=== PATIENT | female | born 1975 | race Two or more races ===

== ENCOUNTER → 2024-08-20 | Outpatient (CLI) | payer MEDICAID, SELFPAY ==
--- NOTE | 2024-08-20 15:00 | XR_ITS ---
Examination: Pelvic ultrasound, transabdominal, complete Technique: Transabdominal ultrasound of the pelvis performed using grayscale imaging Date and time of exam: August 20, 2024 1503 hours INDICATIONS: Lower pelvic pain beginning 2 months ago FINDINGS: Uterus 9.6 x 4.0 x 5.5 cm No uterine mass noted on this transabdominal study Endometrial stripe 0.8 cm Right ovary 2.2 cm arterial flow Left ovary 3.7 cm arterial flow, 3.7 x 3.0 cm cyst IMPRESSION: Left ovarian cyst 3.7 x 2.6 x 3.0 cm
--- NOTE | 2024-08-20 15:00 | XR_ITS ---
Examination: Transvaginal ultrasound of the pelvis, complete Technique: Transvaginal sonographic images pelvis performed using rivera scale imaging Exam date and time: August 20, 2024 1511 hours INDICATIONS: Lower pelvic pain beginning 2 months ago FINDINGS: Uterus 8.5 x 4.7 x 5.6 cm. Uterine fundal mass 2.0 x 2.0 x 2.1 cm Endometrial sign 0.5 cm Right ovary 2.2 cm arterial flow Left ovary 3.9 cm arterial flow 19 x 12 x 21 mm cyst IMPRESSION: Uterine posterior fundal area of fibroid degeneration 2.0 x 2.0 x 2.1 cm Simple left ovarian cyst 19 x 12 x 21 mm
== END | disposition home or self-care (01) ==
LOC: CDIM 14:47
PROVIDERS: PCP Nurse Practitioner Family; Referring Provider Obstetrics & Gynecology; Visit Provider Obstetrics & Gynecology
DX: N83.201 Unspecified ovarian cyst, right side (principal); D25.9 Leiomyoma of uterus, unspecified
CPT/HCPCS: 76830; 76856

== ENCOUNTER → 2025-01-18 | Outpatient (CLI) | payer MEDICAID, SELFPAY ==
--- NOTE | 2025-01-18 15:00 | XR_ITS ---
Examination: Transvaginal ultrasound of the pelvis, complete Technique: Transvaginal sonographic images pelvis performed using rivera scale imaging Exam date and time: January 18, 2025 1436 hours INDICATIONS: Right lower abdominal pain pelvic pain beginning 5 days ago FINDINGS: Uterus 8.9 cm Posterior uterine body mass 24 x 25 x 30 mm Anterior uterine fundal mass 24 x 19 x 18 mm Endometrial stripe 0.6 cm Mild free fluid Right ovary 2.9 cm arterial flow 13 mm follicular cyst Left ovary 2.2 cm arterial flow IMPRESSION: Uterine areas of fibroid degeneration as above
== END | disposition home or self-care (01) ==
PROVIDERS: PCP Obstetrics & Gynecology; Referring Provider Obstetrics & Gynecology; Visit Provider Obstetrics & Gynecology
DX: N83.202 Unspecified ovarian cyst, left side (principal); D25.9 Leiomyoma of uterus, unspecified
CPT/HCPCS: 76830

== ENCOUNTER → 2025-04-28 | Outpatient (CLI) | payer MEDICAID, SELFPAY ==
--- NOTE | 2025-04-28 15:38 | XR_ITS ---
EXAMINATION: Ultrasound soft tissue neck TECHNIQUE: Grayscale sonographic images soft tissue neck Date and time: April 28, 2025, 1530 hours INDICATIONS: Posterior neck pain beginning 5 months ago. FINDINGS: No cystic or solid mass IMPRESSION: No cystic or solid mass If symptoms persist, consider CT soft tissue neck post intravenous contrast follow-up
== END | disposition home or self-care (01) ==
LOC: CDIM 14:55
PROVIDERS: PCP Nurse Practitioner Family; Referring Provider Nurse Practitioner Family; Visit Provider Nurse Practitioner Family
DX: M54.2 Cervicalgia (principal)
CPT/HCPCS: 76536

== ENCOUNTER → 2025-05-13 | Outpatient (CLI) | payer MEDICAID, SELFPAY ==
--- NOTE | 2025-05-13 16:00 | XR_ITS ---
Examination: MRI thoracic spine without contrast. Date and time of exam: May 13, 2025, 1955 hours INDICATIONS: Upper back pain radiating to left arm numbness and paresthesias in the left arm 6 months Technique: Multiple sagittal and axial images of the thoracic spine have been obtained. T1 weighted localizer, sagittal T2 weighted images, TR 30-50, TE 148, T1 weighted sagittal images, TR 650, TE 14, T2-weighted transverse images, TR 6770, TE 142 Findings: Adequate alignment thoracic vertebral bodies Mild diffuse thoracic disc narrowing Mild diffuse thoracic disc desiccation No localized enlargement thoracic cord No definite increase signal in the thoracic cord Axial images demonstrate no focal disc protrusion impinging upon the thoracic cord Impression: Mild diffuse thoracic degenerative disc disease No thoracic disc protrusions impinging upon the thoracic cord Given the patient's presentation, consider brain MRI follow-up pre and post contrast, MS protocol
--- NOTE | 2025-05-13 16:30 | XR_ITS ---
Examination: MRI cervical spine without intravenous contrast Date and time of exam: May 13, 2025, 1719 hours INDICATIONS: Neck pain radiating down the left arm 6 months Technique: Multiple axial and sagittal sections of the cervical spine to been obtained. T2 weighted sagittal sections, TR 3, 270, TE 117 T1-weighted sagittal sections, TR 500, TE 11 T1-weighted axial sections, TR 607, TE 12, axial sections TR 18, TE 27 and T2 weighted transverse sections, TR 3920, TE 122. Findings: Adequate Assignment Manager cervical vertebral bodies. No cervical fracture. Intact odontoid. Diffuse cervical disc desiccation. Moderate disc narrowing C4-C5, C5-C6, C6-C7 No localized large Cervical cord C2-C3 no disc protrusion C3-C4 no disc protrusion C4-C5 5 mm central disc protrusion indenting ventral margin cervical cord C5-C6 5 mm left paracentral disc bulge indenting ventral margin cervical cord with moderate right and advanced left neural foraminal stenosis C6-C7 4 mm central subarticular osteophyte disc complex, indenting the ventral margin cervical cord with advanced left neuroforaminal stenosis C7-T1 no disc protrusion IMPRESSION: C4-C5 5 mm central disc protrusion indenting the ventral margin cervical cord C5-C6 5 mm left paracentral disc bulge indenting ventral margin cervical cord with moderate right and advanced left neural foraminal stenosis C6-C7 4 mm central subarticular osteophyte disc complex indenting the ventral margin cervical cord with advanced left neural foraminal stenosis
== END | disposition home or self-care (01) ==
PROVIDERS: PCP Nurse Practitioner Family; Referring Provider Nurse Practitioner Family; Visit Provider Nurse Practitioner Family
DX: M50.21 Other cervical disc displacement, high cervical region (principal); M48.02 Spinal stenosis, cervical region; M25.78 Osteophyte, vertebrae; M51.34 Other intervertebral disc degeneration, thoracic region
CPT/HCPCS: 72141; 72146